=== PATIENT | male | born 1980 | race Caucasian/White ===

== ENCOUNTER 2019-01-19 15:17 | Emergency (ER) | payer MEDICAID ==
[~2019-01-19] VITALS: Ht 167.6 cm; Wt 58.3 kg
[~2019-01-19 15:17] MED LIST: IBUP-1542 PO
[2019-01-19 15:41] VITALS: BP 137/97; PULSE 91; RESP 18; Ht 167.6 cm; Wt 58.3 kg
[2019-01-19] MEDS ORDERED: IBUPROFEN 600 MG TAB PO ONE (16:30)
== END 2019-01-19 18:42 | disposition home or self-care (01) ==
LOC: FTE 15:17
DX: M25.561 Pain in right knee (principal)
CPT/HCPCS: 73562; Z7502; Z7610